=== PATIENT | male | born 1980 | race Caucasian/White ===

== ENCOUNTER → 2019-06-30 | Outpatient (CLI) | payer OTHER, SELFPAY | LOC: M OUTALCOH 07:53 | PROVIDERS: ATTEND Psychiatry & Neurology Psychiatry | DX: Z03.89 Encounter for observation for other suspected diseases and conditions ruled out (principal) ==

== ENCOUNTER 2019-07-12 13:15 | Outpatient (RCR) | payer OTHER, SELFPAY | END 2019-08-04 | LOC: M OUTALCOH 13:15 | PROVIDERS: ATTEND Psychiatry & Neurology Psychiatry | DX: Z03.89 Encounter for observation for other suspected diseases and conditions ruled out (principal) ==

== ENCOUNTER → 2019-11-23 | Outpatient (CLI) | payer MEDICAID | LOC: M OUTALCOH 08:19 | PROVIDERS: ATTEND Psychiatry & Neurology Addiction Medicine | DX: Z03.89 Encounter for observation for other suspected diseases and conditions ruled out (principal) ==

== ENCOUNTER 2019-11-30 08:01 | Outpatient (RCR) | payer MEDICAID | END 2019-12-03 | LOC: M OUTALCOH 08:01 | PROVIDERS: ATTEND Psychiatry & Neurology Addiction Medicine | DX: Z03.89 Encounter for observation for other suspected diseases and conditions ruled out (principal) ==

== ENCOUNTER → 2020-12-12 | Outpatient (REF) | payer OTHER | LOC: M LAB REF 15:53 | PROVIDERS: ATTEND Surgery | DX: A64 Unspecified sexually transmitted disease (principal) ==

== ENCOUNTER → 2020-12-24 | Outpatient (REF) | payer OTHER | LOC: M LAB REF 11:51 | PROVIDERS: ATTEND Surgery | DX: U07.1 COVID-19 (principal) ==

== ENCOUNTER 2021-05-11 01:01 | Emergency (ER) | payer OTHER ==
[~2021-05-11] VITALS: Ht 175.3 cm; Wt 85.1 kg
[2021-05-11] MEDS ORDERED: PROZ20CA11 PO (01:16)
[2021-05-11 02:46] VITALS: BP 161/98
== END 2021-05-11 03:04 | disposition home or self-care (01) ==
LOC: M ED 01:01
DX: F15.10 Other stimulant abuse, uncomplicated (principal); F17.210 Nicotine dependence, cigarettes, uncomplicated

== ENCOUNTER → 2022-05-27 | Outpatient (CLI) | payer MEDICAID ==
[~2022-05-27] MED LIST: PROZ20CA11 PO
== END ==
LOC: M OUTALCOH 07:31
PROVIDERS: ATTEND Psychiatry & Neurology Psychiatry
DX: Z13.39 Encounter for screening examination for other mental health and behavioral disorders (principal)

== ENCOUNTER → 2022-12-12 | Outpatient (REF) | payer OTHER ==
[2022-12-12 14:43] LABS: GC DNA AMPLIFICATION NEGATIVE (NEGATIVE)
== END ==
LOC: M LAB REF 12:15
PROVIDERS: ATTEND Surgery
DX: A64 Unspecified sexually transmitted disease (principal)

== ENCOUNTER 2023-02-27 14:45 | Emergency (ER) | payer OTHER, SELFPAY ==
[~2023-02-27] VITALS: Ht 175.3 cm; Wt 82.9 kg
[2023-02-27] MEDS ORDERED: ISOVUE-370 76% 100ML VIAL As Ordered ONE (15:25)
[2023-02-27 15:33] LABS: BASO % 0.6 % (0.0-1.0); EOS # 0.1 10^3/uL (0.0-0.5); EOS % 2.1 % (0.0-3.0); HEMATOCRIT 42.7 % (42.0-52.0); HEMOGLOBIN 14.3 g/dl (13.5-17.5); LYMPH # 1.6 10^3/uL (1.5-5.0); LYMPH % 24.1 % (24.0-44.0); MEAN CORPUSCULAR HEMOGLOBIN 29.4 pg (27.0-33.0); MEAN CORPUSCULAR HGB CONC 33.5 g/dl (32.0-36.5); MEAN CORPUSCULAR VOLUME 87.9 fl (80.0-96.0); MONO # 0.8 10^3/uL (0.0-0.8); MONO % 11.2 % (2.0-8.0); NEUTROPHILS # 4.1 10^3/uL (1.5-8.5); NEUTROPHILS % 61.4 % (36.0-66.0); PLATELET COUNT, AUTOMATED 251 10^3/uL (150-450); RED BLOOD COUNT 4.86 10^6/uL (4.30-6.10); WHITE BLOOD COUNT 6.7 10^3/uL (4.0-10.0)
[2023-02-27 15:45] LABS: INR 0.99; PARTIAL THROMBOPLASTIN TIME 26.6 SECONDS (24.8-34.2); PROTHROMBIN TIME 13.3 SECONDS (12.5-14.5)
[2023-02-27 16:00] LABS: CK-MB VALUE MASS 1.8 NG/ML (<3.6); LIPASE 29 U/L (12-53)
[2023-02-27 16:01] LABS: ETHYL ALCOHOL (ETHANOL) < 0.003 % (0.000-0.010)
[2023-02-27 16:02] LABS: ALBUMIN 3.7 G/DL (3.2-5.2); ALKALINE PHOSPHATASE 100 U/L (46-116); ALT/SGPT 105 U/L (7.0-40); AMYLASE 46 U/L (30-118); AST/SGOT 56 U/L (<34); BILIRUBIN,DIRECT 0.2 MG/DL (<0.4); BILIRUBIN,TOTAL 0.6 MG/DL (0.3-1.2); CPK CREATINE PHOSPHOKINASE 156 U/L (46-171); MB/CK RELATIVE INDEX 1.15 (< OR =4); TOTAL PROTEIN 6.9 G/DL (5.7-8.2)
[2023-02-27 16:06] LABS: RSV AMPLIFICATION NEGATIVE (NEGATIVE)
[2023-02-27 17:41] VITALS: BP 158/92
== END 2023-02-27 17:49 | disposition home or self-care (01) ==
LOC: M ED 14:45
DX: S20.20XA Contusion of thorax, unspecified, initial encounter (principal); S40.022A Contusion of left upper arm, initial encounter; V48.0XXA Car driver injured in noncollision transport accident in nontraffic accident, initial encounter; Y92.410 Unspecified street and highway as the place of occurrence of the external cause; Y93.89 Activity, other specified; Y99.8 Other external cause status
CPT/HCPCS: 36415; 70450; 70486; 71045; 71260; 72125; 72128; 72131; 73590; 74177; 80047; 80076; 82077; 82150; 82550; 82553; 83605; 83690; 84484; 85025; 85610; 85730; 86850; 86900; 86901; 87631; 93005; 93041; 94760; 99285; Q9967